=== PATIENT | female | born 1990 | race American Indian/Alaskan Native ===

== ENCOUNTER 2021-01-17 08:07 | Outpatient (CLI) | payer OTHER ==
[2021-01-17 08:54] LABS: Blood Urea Nitrogen 9 mg/dL (7-17)
--- NOTE | 2021-01-17 09:36 | Cat Scan Report ---
CT head/brain wo/w con INDICATION: HYPERPROLACTINEMIA OMNI 300 100 ML. TECHNIQUE: Routine CT head. All CT scans at this location are performed using CT dose reduction for A SMAANTHA by means of automated exposure control. COMPARISON: None. FINDINGS: Intracranial: Olvera-white matter differentiation is maintained. No intracranial hemorrhage. No extra a xial collection. No hydrocephalus. No herniation. Sella is not expanded. Artifact slightly degrades t he pituitary gland. 5 mm hypoenhancing lesion seen within the right pituitary gland. No suprasellar e xtension. No cavernous sinus invasion. Sinuses: Paranasal sinuses and mastoid air cells are essentially clear. Orbits: Globes are intact. Calvarium: No acute fracture. IMPRESSION: 1. 5mm hypoenhancing lesion within the right anterior sella concerning for microadenoma. Can correla te with MRI of the pituitary gland for better characterization. Signer Name: Wiliam Fuentes MD Signed: 01/17/2021 9:32 AM Workstation Name: [id number]
== END 2021-01-17 08:08 | disposition home or self-care (01) ==
LOC: CT 08:07
DX: E23.6 Other disorders of pituitary gland (principal); R51.9 Headache, unspecified; D36.7 Benign neoplasm of other specified sites
CPT/HCPCS: 36415; 70470; 82565; 84520; Q9967